=== PATIENT | male | born 1945 | race Two or more races ===

== ENCOUNTER 2020-09-26 07:52 | Emergency (ER) | payer OTHER ==
[~2020-09-26] VITALS: Ht 180.3 cm; Wt 78.5 kg
[2020-09-26] MEDS ORDERED: RESTORIL30 MG PO (08:03)
== END 2020-09-26 16:09 | disposition home or self-care (01) ==
LOC: ER 07:52 → CPU-OBS 09:04 → ER 09:04
DX: S01.122A Laceration with foreign body of left eyelid and periocular area, initial encounter (principal); R03.0 Elevated blood-pressure reading, without diagnosis of hypertension; R42 Dizziness and giddiness; W18.09XA Striking against other object with subsequent fall, initial encounter; Y93.89 Activity, other specified; Y92.018 Other place in single-family (private) house as the place of occurrence of the external cause; Y99.8 Other external cause status; Z03.818 Encounter for observation for suspected exposure to other biological agents ruled out

== ENCOUNTER 2021-06-29 09:23 | Inpatient (IN) | payer OTHER ==
[~2021-06-29] VITALS: Ht 180.3 cm
[~2021-06-29 09:23] MED LIST: RESTORIL30 MG PO
[2021-06-29] MEDS ORDERED: TOPROL XL25 M1 PO (09:37)
[2021-06-29] MEDS ORDERED: FLAGYL500MG PO (09:38)
[2021-06-29] MEDS ORDERED: ALTACE2.5 MG PO (09:38)
[2021-06-29] MEDS ORDERED: PROBIOTIC1 EAC1 PO (09:38)
--- NOTE | 2021-06-29 09:39 | NUR ---
SE RECIBE PACIENTE ALERTA Y ORIENTADO X3 REFIERE LLEVA 3 BOOTH CON DIARREAS Y VOMITOS, REFIERE FUE A AREVALO MEDICO PRIMARIO QUIEN LE ORDENO MEDICAMENTOS DE FLAGYL Y PROBIOTICOS ERIN PACIENTE NO A REYES. SE MONITOREAN S/V. SE UBICA EN AREA DE OBSERVACION.
--- NOTE | 2021-06-29 10:50 | NUR ---
SE RECIBE PTE MASCULINO DE 75 YRS ALERTA CONCIENTE Y TRANQUILO ACOMPANADO DE FAMILAIR. PTE ES EVALUADO POR EL SUSANA MURDOCK QUIEN ORDENA TRATAMIENTO LA CUAL SE EJECUTA.
--- NOTE | 2021-06-29 15:00 | NUR ---
SE RECIBE PTE ALERTA Y ORIENTADO X 3 ESFERAS EN CAMA EN COMPANIA DE FAMILIAR. PRESENTANDO BUEN PATRON RESPIRATORIO. RECIBIENDO IV'S 0.9NSS BAJANDO A 150ML/HR AREA DE VENOPUNCION REBA DE EDEMA Y ERITEMA EN BRAZO TAMMY. PENDIENTE LECTURA DE CT.
[2021-06-30] MEDS ORDERED: AMOX-CLAV 875-1 EACH (10:11)
[2021-06-30] MEDS ORDERED: OMEPRAZOLE40 MG (10:12)
[2021-06-30] MEDS ORDERED: IBUPROFEN800 MG (10:12)
[2021-07-04] MEDS ORDERED: TOPROL XL25 M1 PO (11:22)
[2021-07-04] MEDS ORDERED: INTESTINEX680 M1 PO (11:22)
[2021-07-04] MEDS ORDERED: CIPRO500 MG PO (11:22)
[2021-07-04] MEDS ORDERED: TAMS0.4C PO (11:22)
[2021-07-04] MEDS ORDERED: RESTORIL15 MG PO (11:22)
== END 2021-07-04 13:10 | disposition home or self-care (01) | DRG 392 ==
LOC: ER 09:23 → MEDJ 23:27
PROVIDERS: ADMIT Internal Medicine; ATTEND Internal Medicine
PROC: BW2110Z Computerized Tomography (CT Scan) of Abdomen and Pelvis using Low Osmolar Contrast, Unenhanced and Enhanced (ICD-10-PCS; principal; 2021-06-29)
PROC: 8E0ZXY6 Isolation (ICD-10-PCS; 2021-06-29)
PROC: BT43ZZZ Ultrasonography of Bilateral Kidneys (ICD-10-PCS; 2021-06-30)
DX: K52.89 Other specified noninfective gastroenteritis and colitis (principal); N17.8 Other acute kidney failure; A02.8 Other specified salmonella infections; E86.0 Dehydration; T78.1XXA Other adverse food reactions, not elsewhere classified, initial encounter; Y93.G9 Activity, other involving cooking and grilling; D72.828 Other elevated white blood cell count; Z20.822 Contact with and (suspected) exposure to COVID-19; Z95.0 Presence of cardiac pacemaker; Z92.3 Personal history of irradiation; Z85.46 Personal history of malignant neoplasm of prostate

== ENCOUNTER → 2025-08-28 | Emergency (ER) | payer OTHER ==
[~2025-08-28] VITALS: Ht 180.3 cm; Wt 70.8 kg
[~2025-08-28] MED LIST changes: +ALTACE2.5 MG PO; +AMOX-CLAV 875-1 EACH; +CIPRO500 MG PO; +FLAGYL500MG PO; +IBUPROFEN800 MG; +INTESTINEX680 M1 PO; +MAXITROL EYE DRO5 ML OP; +OMEPRAZOLE40 MG; +PROBIOTIC1 EAC1 PO; +RESTORIL15 MG PO; +TAMS0.4C PO; +TETRACAINE HCL 20 DR/ML DROPS OP ONE; +TOPROL XL25 M1 PO
== END | disposition home or self-care (01) ==
LOC: ER 08:58
DX: S05.8X9A Other injuries of unspecified eye and orbit, initial encounter (principal); Z91.041 Radiographic dye allergy status; Z91.013 Allergy to seafood; Z95.0 Presence of cardiac pacemaker; Z85.46 Personal history of malignant neoplasm of prostate; I25.10 Atherosclerotic heart disease of native coronary artery without angina pectoris; I10 Essential (primary) hypertension; Z86.2 Personal history of diseases of the blood and blood-forming organs and certain disorders involving the immune mechanism